=== PATIENT | male | born 1940 | race Two or more races ===

== ENCOUNTER → 2017-02-27 11:48 | Outpatient (CLI) | payer OTHER ==
[~2017-02-27 11:48] MED LIST: ACTOS15 MG PO; DITROPAN X10 MG/BOTT PO; LISINOPRIL10 MG PO; METFORMIN HCL1000 MG; NEURIN SL; SIMVASTATIN10 MG PO; TAMS0.4C PO
== END | disposition home or self-care (01) ==
LOC: LAB 11:48
DX: H60.90 Unspecified otitis externa, unspecified ear (principal)

== ENCOUNTER 2022-03-04 07:58 | Outpatient (CLI) | payer OTHER | END 2022-03-04 08:01 | disposition home or self-care (01) | LOC: RX STUDY 07:58 | PROVIDERS: ATTEND Internal Medicine | DX: R13.10 Dysphagia, unspecified (principal) ==

== ENCOUNTER 2024-08-12 13:43 | Emergency (ER) | payer OTHER ==
[~2024-08-12] VITALS: Ht 167.6 cm; Wt 68.9 kg
[2024-08-12 17:56] LABS: BASO % 0.5 % (0.1-1.2); EOS # 0.11 (0.04-0.54); EOS % 1.2 % (0.7-7.0); HEMATOCRIT 37.8 % (40.1-51.0); HEMOGLOBIN 12.8 g/dL (13.7-17.5); LYMPH # 2.85 (1.18-3.74); LYMPH % 30.5 % (19.3-53.1); MEAN CORPUSCULAR HEMOGLOBIN 30.5 pg (25.6-32.2); MONO # 0.81 (0.24-0.82); MONO % 8.7 % (4.7-12.5); NEUT # 5.47 (1.56-6.13); NEUT % 58.7 % (34.0-71.1); PLATELET COUNT 170 K/uL (163-369); RED CELL DISTRIBUTION WIDTH 14.1 % (11.6-14.4)
[2024-08-12 18:16] LABS: BILIRUBIN TOTAL 0.32 mg/dL (0.3-1.2); CALCIUM 9.8 mg/dL (8.5-10.1); CREATININE SERUM 1.18 mg/dL (0.70-1.30); GFR 58.53; GLOBULINA 3.7 G/DL (2.4-3.5); POTASSIUM 4.57 mEq/L (3.5-5.1); TOTAL PROTEIN 7.7 gm/dL (6.4-8.2)
[2024-08-12] MEDS ORDERED: GABAPENTIN100 MG PO (20:41)
== END 2024-08-12 23:37 | disposition home or self-care (01) ==
LOC: ER 13:43
PROVIDERS: Preventive Medicine Public Health & General Preventive Medicine
DX: G62.9 Polyneuropathy, unspecified (principal); R20.0 Anesthesia of skin; E11.9 Type 2 diabetes mellitus without complications; Z79.84 Long term (current) use of oral hypoglycemic drugs